=== PATIENT | female | born 1955 | race Two or more races ===

== ENCOUNTER → 2025-04-28 | Outpatient (CLI) | payer MEDICARE, MEDICAID, SELFPAY ==
--- NOTE | 2025-04-28 09:26 | XR_ITS ---
Examination: Venous Doppler lower extremities reflux study Date and time: April 28, 2025 1014 hours INDICATIONS: Bilateral leg pain one year, venous varicosities TECHNIQUE AND FINDINGS: Sonographic images lower extremities obtained with calculation venous reflux No deep venous system right or left reflux Right mid greater saphenous vein reflux 0.356 seconds Left mid greater saphenous vein reflux 0.321 seconds Negative for DVT IMPRESSION: Minimal reflux as above
== END | disposition home or self-care (01) ==
LOC: CDIM 09:09
PROVIDERS: PCP Family Medicine; Referring Provider Surgery Vascular Surgery; Visit Provider Surgery Vascular Surgery
DX: I83.813 Varicose veins of bilateral lower extremities with pain (principal)
CPT/HCPCS: 93970